=== PATIENT | female | born 1975 | race Caucasian/White ===

== ENCOUNTER → 2017-11-18 | Outpatient (CLI) | payer OTHER ==
[~2017-11-18] MED LIST: LOVENOX100 MG/ML SC; PHENERGAN 25 TA25 MG; PRENATAL1 TA2 PO; SLOW FE45 MG PO; ZOFRAN4 MG PO
== END ==
LOC: COL.VAS 12:19
DX: Z01.818 Encounter for other preprocedural examination (principal); Z86.718 Personal history of other venous thrombosis and embolism

== ENCOUNTER → 2018-12-02 | Outpatient (CLI) | payer OTHER | LOC: MC.RAD 13:45 | DX: Z12.31 Encounter for screening mammogram for malignant neoplasm of breast (principal); N63.10 Unspecified lump in the right breast, unspecified quadrant ==

== ENCOUNTER → 2018-12-04 | Outpatient (CLI) | payer OTHER | LOC: MC.RAD 11:00 | DX: N60.01 Solitary cyst of right breast (principal) ==